=== PATIENT | male | born 1990 | race Caucasian/White ===

== ENCOUNTER 2016-12-15 21:55 | Emergency (ER) | payer MEDICAID ==
[~2016-12-15] VITALS: Ht 172.7 cm; Wt 88.5 kg
[2016-12-15 22:13] VITALS: Ht 172.7 cm; Wt 88.5 kg
[2016-12-16] MEDS ORDERED: IBUPROFEN 600 MG TAB PO ONE (02:00)
[2016-12-16] MEDS ORDERED: ACETAMINOPHEN 325 MG TAB PO ONE (02:00)
--- NOTE | 2016-12-16 02:02 | ERD ---
ER Documentation Chief Complaint Date/Time DATE: 12/16/16 TIME: 01:53 Chief Complaint C/O fever x1-2 days with sore throat. Took otrin 6 hours ago HPI 26-year-old otherwise healthy male presents the emergency department for complaints of fever, sore throat, cough, body aches 2 days. Patient states his symptoms began and have gradually worsened. He reports currently a constant , sharp, 6 out of 10 throat pain which is worse with swallowing. He states he is attempted to treat his symptoms at home with TheraFlu with mild relief. He states his job made him work tonight and will not allow him to take time off without a note from the doctor. He denies chest pain, abdominal pain, nausea, vomiting, diarrhea. Patient denies any medical history. ROS All systems reviewed and are negative except as per history of present illness. Physical Exam Vitals Vital Signs Date Time Temp Pulse Resp B/P Pulse Ox O2 Delivery O2 Flow Rate FiO2 12/15/16 22:13 103.6 106 20 123/57 99 Physical Exam Const: Well-developed, well-nourished, in mild distress Head: Atraumatic Eyes: Normal Conjunctiva ENT: Patient able to speak in full sentences. Normal External Ears, Nose and Mouth. Oropharynx with evidence of bilateral tonsillar swelling, right greater than left with erythema and exudate. Uvula midline. Neck: Full range of motion..~ No meningismus. Painful anterior lymphadenopathy. Resp: To auscultation bilaterally. No wheezes, rhonchi, rales. Cardio: Regular rate and rhythm, no murmurs Abd: Soft, non tender, non distended. Normal bowel sounds Skin: No petechiae or rashes Back: No midline or flank tenderness Ext: No cyanosis, or edema Neur: Awake and alert Psych: Normal Mood and Affect Procedures/MDM This is a 26-year-old otherwise healthy male who presents to the emergency department for complaints of fever, sore throat, cough, and body aches 2 days. Upon arrival, patient's temperature was measured at 103.6. He is mildly tachycardic but with normal blood pressure and he was non-hypoxic. Physical exam with evidence of bilateral, erythematous tonsillar swelling with exudate, anterior painful lymphadenopathy. Fever was well controlled while in the emergency department with 1 dose of Tylenol and Motrin. Patient's heart rate checked prior to discharge and within normal limits. The patient's clinical presentation is consistent with possible bacterial pharyngitis, fever, cough, and body aches. The patient does not exhibit any clinical signs or symptoms concerning for serious bacterial infection or systemic illness. Based on history and clinical exam findings the patient does not appear to have evidence of pneumonia, urinary tract infection, bacteremia, sepsis, or meningitis. For these reasons I do not believe it is necessary to obtain laboratory testing or diagnostic imaging. I believe it would be appropriate for symptom control, and close outpatient primary care follow-up. Based on patient's history of present illness and physical examination the decision was made to discharge. The patient was re-evaluated after ED treatment and stabilizing measures, and symptoms have improved. There is no evidence of life threatening injuries or illnesses at this time. On re-examination, patient resting in no distress, stable vital signs, reports feeling better and safe for discharge with outpatient follow up with PMD in 1-2 days. Patient given return precautions. Departure Diagnosis: Primary Impression: Fever Fever type: unspecified Qualified Code: R50.9 - Fever, unspecified fever cause Additional Impressions: Cough Body aches Sore throat PEÑA BA PA-C Dec 16, 2016 02:02
[2016-12-16] MEDS ORDERED: D-ME473S18 PO (02:05)
[2016-12-16] MEDS ORDERED: ACET325T33 PO (02:05)
[2016-12-16] MEDS ORDERED: NAPR-260 PO (02:05)
[2016-12-16] MEDS ORDERED: AZIT250T94 PO (02:05)
[2016-12-16 03:37] VITALS: PULSE 90; RESP 20; TEMP 100.4
== END 2016-12-16 02:50 | disposition home or self-care (01) ==
LOC: FTE 21:55
DX: R50.9 Fever, unspecified (principal); R05 Cough; J02.9 Acute pharyngitis, unspecified
CPT/HCPCS: Z7502; Z7610; 99284